=== PATIENT | female | born 2000 | race Caucasian/White ===

== ENCOUNTER 2018-06-02 12:33 | Inpatient (IN) | payer OTHER ==
[2018-06-02] MEDS ORDERED: Thiamine HCl 200 MG/2 ML VIAL SLOW IVP SCH ×2 (14:30→15:00)
--- NOTE | 2018-06-02 14:36 | PDOC.FPRHP ---
- History of Present Illness Chief Complaint: bradycardia History of Present Illness: 17 y/o with PMH of MDD and anorexia nervosa, severe, presents for direct admission from clinic. She was seen in our behavioral health consultation clinic during which time she was noted to be bradycardic on vitals. An ECG was obtained which demonstrated NSR, with a HR of 34, and normal voltage without prominent st/t wave changes. She has been having pronounced fatigue since her last visit, which was three weeks ago, with decreased exertional tolerance and presyncope upon rising. In the clinic her orthostatics were positive. Most recently she has also been picking at her face compulsively to alleviate obsessions with loss of purpose and not knowing why she is in school, etc. She currently denies any suicidal ideation, although this was present several weeks ago. Some history taken from psychologist due to patience reticence to endorse parts of her history. - Allergies/Adverse Reactions Allergies Allergy/AdvReac Type Severity Reaction Status Date / Time No Known Allergies Allergy Unverified 06/02/18 14:25 - Home Medications Medication Instructions Recorded Confirmed Type FLUoxetine HCl [Prozac] 40 mg PO DAILY 06/02/18 06/02/18 History hydrOXYzine HCl [Hydroxyzine HCl] 50 mg PO Q8H PRN 06/02/18 06/02/18 History - History PMHx: Major depressive disorder; anorexia nervosa, severe PSHx: none FHx: Major depressive disorder; bipolar disorder Social: denies ethanol, tobacco, or drug abuse. Student at [employer], 3.6 GPA per discussion with psychologist from clinic. Recent breakup approximately 6-7 months ago with deterioration of mood and symptoms subsequently. - Review of Systems General: reports: fatigue. denies: fever/chills, night sweats Eyes: denies: eye pain, vision changes ENT: denies: nasal congestion, rhinorrhea Respiratory: reports: exercise intolerance. denies: cough, congestion, shortness of breath Cardiovascular: reports: other (see HPI). denies: chest pain, palpitation Gastrointestinal: denies: nausea, vomiting, diarrhea, constipation, abdominal pain Genitourinary: denies: dysuria, polyuria Skin: reports: lesions (skin pigmentation changes to right knee; picking of face ) Musculoskeletal: reports: pain, arthritis/arthralgias (right knee) Neurological: denies: numbness, syncope (but + presyncope), seizure, weakness Psychological: reports: depression - Vital signs BP: HR: 44 RR: 16 Tmax: 98.3 Pox: 99% on RA Wt: pending - Physical Exam Constitutional: NAD, awake, alert and oriented, other (very thin, tall) HEENT: normocephalic and atraumatic, PERRLA, conjunctiva clear, normal nasal mucosa, MMM (no dental erosion) Neck: supple, FROM, no LAD Chest: no-tender to palpation, no lesions Heart: no murmurs/rubs/gallops, no edema, other (bradycardic, regular, without murmur) Lungs: CTAB, no respiratory distress, good air movement, no rales/rhonchi Abdomen: soft, non-tender, no masses/distention, other (scaphoid) Musculoskeletal: normal structure, normal tone, ROM grossly normal Neurological: no focal deficit, CN II-XII intact, normal sensation, DTRs 2+ Skin: good turgor, capillary refill <2 seconds, other (pigmentation changes right knee; sores of face) Heme/Lymphatic: no unusual bruising or bleeding, no purpura Psychiatric: other (poor insight and judgment, depressed mood and affect, no si/ hi) FMR H&P: A/P - Problem List (1) Anorexia nervosa with significantly low body weight Current Visit: Yes Status: Acute Code(s): F50.00 - ANOREXIA NERVOSA, UNSPECIFIED (2) Sinus bradycardia Current Visit: Yes Status: Acute Code(s): R00.1 - BRADYCARDIA, UNSPECIFIED (3) Major depressive disorder Current Visit: Yes Status: Acute Code(s): F32.9 - MAJOR DEPRESSIVE DISORDER , SINGLE EPISODE, UNSPECIFIED Qualifiers: Active/Remission status: currently active Major depression episode severity : severe Psychotic features: without psychotic features (4) OCD (obsessive compulsive disorder) Current Visit: Yes Status: Acute Code(s): F42.9 - OBSESSIVE-COMPULSIVE DISORDER, UNSPECIFIED Qualifiers: Obsessive-compulsive disorder type: mixed obsessional thoughts and acts Qualified Code(s): F42.2 - Mixed obsessional thoughts and acts - Plan Bradycardia -will d/w cardiology -lytes, TSH, TTE, vitamin labs Anorexia nervosa, severe, BMI 15.9 in clinic -consult nutrition -lytes, cbc -will discuss diet with nutrition and consider serial labs to avoid refeeding syndrome -once cleared and with bradycardia not < 40 will consider transfer to intensive outpatient therapy if at all possible, will consult social work MDD -increase prozac to 40 mg -hydroxyzine PRN reasonable OCD -as above DVT/GI ppx low risk/diet respectively. FMR H&P: Upper Level - Plan H&P written by the attending of service.
[2018-06-02] MEDS ORDERED: hydrOXYzine 25 MG TAB PO PRN (14:50)
--- NOTE | 2018-06-02 14:59 | CON ---
DATE OF CONSULTATION: 06/02/2018 REASON FOR CONSULTATION: Bradycardia. HISTORY OF PRESENT ILLNESS: Ms. Ordaz is a 17-year-old recently diagnosed with anorexia recently pr esented with bradycardia. She was seen and evaluated in the outpatient setting. Admission was recom mended. From a cardiovascular standpoint, she denies syncope, presyncope, lightheadedness, or dizziness. She did have one episode of near fainting that occurred during a blood draw 2 weeks ago. Otherwise, Hazel jayna forrester had no further history. Her parents were present during the discussion. She has lost 40 pounds in the last year. She states she has increased stressors noted at home and recently lost her boyfriend. She continues to exercis e with a poor p.o. intake. PAST MEDICAL HISTORY: Anxiety. ALLERGIES: None. MEDICATIONS: Prozac. SOCIAL HISTORY: She is single. No tobacco or alcohol use. REVIEW OF SYSTEMS: Ten point review of systems reviewed and as above, otherwise negative. PHYSICAL EXAMINATION: VITAL SIGNS: Blood pressure 92/57, pulse 48, temperature 98.3. GENERAL: Patient is a pleasant female who is in no acute distress. The patient appears her stated a ge. She has low body weight and bradycardic. NEUROLOGIC: The patient is alert and oriented times 3 with no focal neurologic deficits. HEENT: Sclerae without icterus. Mouth has moist mucous membranes with normal pallor. NECK: No JVD. Carotid upstroke brisk. No bruits bilaterally. LUNGS: Clear to auscultation with unlabored respirations. BACK: No scoliosis or kyphosis. CARDIAC: Regular rate and rhythm with normal S1 and S2. No S3 or S4 noted. No significant rubs, murmurs, thrills, or gallops noted throughout the precordium. PMI is not displaced. There is no parasternal heave. ABDOMEN: Soft, nontender, nondistended. No peritoneal signs present. No hepatosplenomegaly. No abnormal striae. EXTREMITIES: 2+ femoral and 2+ dorsalis pedis pulses. No cyanosis, clubbing, or edema. SKIN: No gross abnormalities. PERTINENT LABS: Pending. EKG shows marked bradycardia. IMPRESSION: 1. Bradycardia. 2. Anorexia. RECOMMENDATIONS: There is certainly an association between bradycardia and anorexia. Bradycardia ca n occur from advanced anorexia. Heart failure can also occur. At this point, I would recommend clos e observation. I will also recommend a 3-week outpatient event recorder, although she will be transf erred likely to an inpatient anorexia center in [place]. I recommended a follow up with a card iologist in [place] upon discharge. We will review her echo to assess her LVEF.
[2018-06-02 15:24] LABS: #Basophils 0.1 thou/uL (0.0-0.2); #Eosinphils 0.1 thou/uL (0.0-0.7); #Lymphocytes 1.1 thou/uL (1.20-3.40); #Monocytes 0.4 thou/uL (0.11-0.59); #Neutrophils 2.4 thou/uL (1.40-6.50); %Basophils 1.3 % (0.0-1.0); %Eosinophils 2.6 % (0.0-10.0); %Lymphocytes 28.1 % (28.0-48.0); %Neutrophils 59.1 % (31.0-61.0); Hemoglobin 13.7 g/dL (12.0-16.0); Mean Corpuscular HGB CONC 33.7 g/dL (32.0-36.0); Mean Corpuscular Hemoglobin 31.8 pg (25.0-35.0); Mean Corpuscular Volume 94.3 fL (78.0-98.0); Mean Platelet Volume 6.7 fL (7.4-10.4); Platelet Count 223 thou/uL (130-400); RBC Distribution Width 12.2 % (11.5-14.5); Red Blood Cell (RBC) Count 4.33 mill/uL (4.00-5.20)
[2018-06-02 15:50] LABS: ALT (SGPT) 9 U/L (8-55); AST (SGOT) 12 U/L (5-30); Albumin 4.2 g/dL (3.5-5.0); Alkaline Phosphatase 41 U/L (40-150); Anion Gap 9 mmol/L (10-20); BUN (Urea Nitrogen) 15 mg/dL (8.4-21.0); Bilirubin, Total 0.6 mg/dL (0.2-1.2); Calc. Creatinine Clearance 92 mL/min (70-130); Calcium 9.3 mg/dL (7.8-10.44); Carbon Dioxide 31 mmol/L (22-29); Chloride 105 mmol/L (98-107); Estimated GFR-MDRD 89; Globulin 2.4 g/dL (2.4-3.5); Glucose 102 mg/dL (70-105); Lipase 40 U/L (8-78); Magnesium 2.4 mg/dL (1.7-2.2); Phosphorus 3.4 mg/dL (2.3-4.7); Potassium 3.4 mmol/L (3.5-5.1); Protein, Total 6.6 g/dL (6.0-8.3); Sodium 142 mmol/L (136-145)
[2018-06-02 16:30] LABS: Free T4 (Free Thyroxine) 0.96 ng/dL (0.70-1.48); Thyroid Stimulating Hormone 0.9498 uIU/mL (0.35-4.94); Vitamin D, 25 Hydroxy 34.7 ng/ml (> 30.0)
[2018-06-02 19:48] LABS: Pregnancy Test - Urine (BHCG) Negative (Negative); Pregu Control Background? CLEAR/WHITE (CLR/WHITE); Pregu Control Bar Appear? YES (CONTROL BAR); Specific Gravity 1.022 (1.002-1.036)
[2018-06-02] MEDS: FLUoxetine HCl 20 MG CAP PO SCH (21:48)
[2018-06-03 01:37] LABS: Anion Gap 10 mmol/L (10-20); BUN (Urea Nitrogen) 23 mg/dL (8.4-21.0); Calc. Creatinine Clearance 92 mL/min (70-130); Carbon Dioxide 28 mmol/L (22-29); Chloride 109 mmol/L (98-107); Estimated GFR-MDRD 89; Glucose 88 mg/dL (70-105); Phosphorus 4.6 mg/dL (2.3-4.7); Potassium 3.7 mmol/L (3.5-5.1); Sodium 143 mmol/L (136-145)
--- NOTE | 2018-06-03 07:23 | PDOC.FM ---
- Subjective Subjective: Pt feels well this morning. Worried about what she is going to do in the future. Worried about the cost of the hospitalization. States she doesn't believe me when discussing her condition is critical enough to require hospitalization. Her parents live in [place] and she states they are in town and will be up to visit her today. - Objective MAR Reviewed: Yes Vital Signs & Weight: Vital Signs (12 hours) Temp Pulse Resp BP Pulse Ox 06/03/18 04:00 97.7 F 36 L 12 112/62 99 06/02/18 23:59 98 F 43 L 15 102/55 L 98 06/02/18 20:50 98.0 F 45 L 14 101/55 L 98 Weight Weight 54.023 kg I&O: 06/02/18 06/03/18 06/04/18 06:59 06:59 06:59 Intake Total 770 Output Total 150 Balance 620 Result Diagrams: 06/02/18 15:14 06/03/18 00:39 Phys Exam - Physical Examination Constitutional: NAD Very thin appearing Neck: supple Respiratory: no wheezing, clear to auscultation bilateral Cardiovascular: no significant murmur Bradycardic Gastrointestinal: non-tender, positive bowel sounds very thin Musculoskeletal: no edema, pulses present Psychiatric: A&O x 3 Deviation from normal: Unsettled disposition, good eye contact. Poor insight into medical conditio Skin: cap refill <2 seconds Dx/Plan (1) Anorexia nervosa with significantly low body weight Code(s): F50.00 - ANOREXIA NERVOSA, UNSPECIFIED Status: Acute (2) Major depressive disorder Code(s): F32.9 - MAJOR DEPRESSIVE DISORDER, SINGLE EPISODE, UNSPECIFIED Status : Chronic Qualifiers: Active/Remission status: currently active Major depression episode severity : severe Psychotic features: without psychotic features (3) OCD (obsessive compulsive disorder) Code(s): F42.9 - OBSESSIVE-COMPULSIVE DISORDER, UNSPECIFIED Status: Chronic Qualifiers: Obsessive-compulsive disorder type: mixed obsessional thoughts and acts Qualified Code(s): F42.2 - Mixed obsessional thoughts and acts (4) Sinus bradycardia Code(s): R00.1 - BRADYCARDIA, UNSPECIFIED Status: Chronic - Plan Plan: Bradycardia - 30's overnight - cardiology - Monitor lytes, TSH, TTE, vitamin labs Anorexia nervosa, severe, BMI 15.9 in clinic - Nutrition consulted - Daily standing wts facing away from scale - Must have 3 meal trays per day - Monitor Electrolytes and CBC, serial labs to avoid refeeding syndrome - CM consulted to arrange outpt intensive therapy once cleared from medical standpoint MDD - Continue Prozac 40 mg - Hydroxyzine PRN reasonable OCD - Manage as above Code Status: FULL
--- NOTE | 2018-06-03 12:55 | PQF ---
Date: 06-04-18 ATTN: DR. MARIA ELENA ATWOOD Please exercise your independent, professional judgment in responding to the clarification form. Clinical indicators are provided on the bottom of this form for your review Please check appropriate box(s): [ ] Protein Calorie Malnutrition: [ ] Mild [ ] Moderate [x] Severe [ ] Other Malnutrition (please specify) __ [ ] Cachexia [ ] Other diagnosis [ ] Unable to determine In addition, please specify: Present on Admission (POA): [x] Yes [ ] No [ ] Unable to determine CLINICAL INDICATORS - SIGNS / SYMPTOMS / LABS BMI of 15.[address] KAWN 06-02-18: SHE HAS LOST 40 POUNDS IN LAST YEAR, SHE CONTINUES TO EXERCISE WITH A POOR PO INTAKE LIFESTYLE DIRECTOR CONSULT 06-03-18: Patient is a sophomore at [employer], states she began restricting food this summer because "food was always available her first year and she wanted to practice self-control since she's not as active. " Patient played basketball and volleyball in high school and believes that she is not burning enough calories to require higher calorie foods. She eats one packet of oatmeal cooked with water every morning and a PB&J for lunch, usually skips dinner. She will restrict further if she goes out to eat with family/friends and thinks "she ate enough to sustain her for a while." LIFESTYLE DIRECTOR CONSULT 06-03-18: Noted: observed minimal fat stores, thin appearance, restrictive eating patterns, estimated energy intake of <75% of estimated needs x6 months , 24% weight loss in 6 months, body fat depletion, amenorrhea RISK FACTORS: LIFESTYLE DIRECTOR CONSULT 06-03-18: major depressive disorder, anorexia nervosa LIFESTYLE DIRECTOR CONSULT 06-03-18: Noted: observed minimal fat stores, thin appearance, restrictive eating patterns, estimated energy intake of <75% of estimated needs x6 months, 24% weight loss in 6 months, body fat depletion, amenorrhea TREATMENT: LIFESTYLE DIRECTOR CONSULT 06-03-18: 1. Continue Regular diet, monitoring for intake of greater than 500 calories per meal [address]. RD to add Mighty Shakes TID with meals 3. Monitor for refeeding syndrome Moderate Malnutrition (in acute illness) Energy Intake: <75% of estimated energy requirement for > 7 days Weight Loss: 1-2%/1 week; 5%/ 1 month; 7.5%/3 months Other: mild body fat loss; mild muscle mass loss; mild fluid accumulation; Severe Malnutrition (in acute illness) Energy Intake: < 50% of estimated energy requirement for > 5 days Weight Loss: >1-2%/1 week; >5%/1 month; >7.5%/3 months Other: moderate body fat loss; moderate muscle mass loss; moderate- severe fluid accumulation; measurably reduced superintendent general strength Moderate Malnutrition (in chronic illness) Energy Intake: <75% of estimated energy requirement for >1 month Weight Loss: 5%/1 month; 7.5%/3 months; 10%/6 months; 20%/1 year Other: mild body fat loss; mild muscle mass loss; mild fluid accumulation Severe Malnutrition (in chronic illness) Energy Intake: <75% of estimated energy requirement for >1 month Weight Loss: >5%/1 month; >7.5%/3 months; >10%/6 months; >20%/1 year Other: severe body fat loss; severe muscle mass loss; severe fluid accumulation ; measurably reduced superintendent general strength (This form is maintained as a part of the permanent medical record) 2014 [employer]. All Rights Reserved [email or web address] Office: [phone] [facility]
--- NOTE | 2018-06-03 14:31 | PDOC.CTH ---
Cardiology Progress Note - Subjective Doing ok today. Still confused about her current situation. She is not sure she needs to be hospitalized for her condition - Objective Vital Signs Temp Pulse Resp BP BP Pulse Ox 06/03/18 11:23 98.0 F 44 L 16 112/67 98 06/03/18 09:25 98.1 F 49 L 16 103/61 98 06/03/18 04:00 97.7 F 36 L 12 112/62 99 Admit Weight 117 lb 11.2 oz Weight 119 lb 1.6 oz 06/02/18 06/03/18 06/04/18 06:59 06:59 06:59 Intake Total 770 Output Total 150 Balance 620 - Physical Examination General/Neuro: alert & oriented x3, NAD Neck: carotid US brisk, no JVD present Lungs: CTA, unlabored respirations Heart: PMI normal, RRR Abdomen: NT/ND, soft Extremities: + femoral B - Labs Result Diagrams: 06/02/18 15:14 06/03/18 00:39 - Assessment/Plan Bradycardia Anorexia nervosa Given no current symptoms, recommend close observation. I has a karthik discussion with her today on the importance of seeking help. As her nutrition status improves, so to will her HR
[2018-06-03] MEDS: FLUoxetine HCl 20 MG CAP PO SCH (20:13)
--- NOTE | 2018-06-04 05:35 | PDOC.CTH ---
Cardiology Progress Note - Subjective HR overall unchanged. Hr in the 30's while asleep. With activity increases to upper 40's to 50's. No current symptoms./ - Objective Vital Signs Temp Pulse Resp BP BP Pulse Ox 06/04/18 04:00 98.4 F 41 L 17 100/54 L 99 06/03/18 19:14 98.0 F 63 20 116/72 98 Admit Weight 117 lb 11.2 oz Weight 119 lb 1.6 oz 06/02/18 06/03/18 06/04/18 06:59 06:59 06:59 Intake Total 770 Output Total 150 Balance 620 - Physical Examination General/Neuro: alert & oriented x3, NAD Neck: carotid US brisk, no JVD present Lungs: CTA, unlabored respirations Heart: PMI normal, RRR Abdomen: no HSM, NT/ND, soft Extremities: + femoral B - Labs Result Diagrams: 06/04/18 06:25 06/04/18 06:25 - Assessment/Plan Bradycardia Anorexia nervosa Again, long discussion with pt on the importance of getting treatment. Pt still unsure she needs it. No current CV recommendations given no symptoms. As nutrition status improves, so to will her HR. Ok to DC to [facility]
--- NOTE | 2018-06-04 06:11 | PDOC.FM ---
- Subjective Subjective: Doing well ate most of her breakfast. Her friends came to visit last night and brought her a shake. She drank all of it. There has been a family member present supervising each of her meals. - Objective MAR Reviewed: Yes Vital Signs & Weight: Vital Signs (12 hours) Temp Pulse Resp BP BP Pulse Ox 06/04/18 04:00 98.4 F 41 L 17 100/54 L 99 06/03/18 19:14 98.0 F 63 20 116/72 98 Weight Admit Weight 53.388 kg Weight 54.204 kg I&O: 06/02/18 06/03/18 06/04/18 06:59 06:59 06:59 Intake Total 770 480 Output Total 150 Balance 620 480 Result Diagrams: 06/04/18 06:25 06/04/18 06:25 Phys Exam - Physical Examination Constitutional: NAD Neck: supple Respiratory: no wheezing, clear to auscultation bilateral Cardiovascular: no significant murmur bradycardic Gastrointestinal: soft, non-tender Neurological: moves all 4 limbs Psychiatric: normal affect, A&O x 3 Dx/Plan (1) Anorexia nervosa with significantly low body weight Code(s): F50.00 - ANOREXIA NERVOSA, UNSPECIFIED Status: Acute (2) Major depressive disorder Code(s): F32.9 - MAJOR DEPRESSIVE DISORDER, SINGLE EPISODE, UNSPECIFIED Status : Chronic Qualifiers: Active/Remission status: currently active Major depression episode severity : severe Psychotic features: without psychotic features (3) OCD (obsessive compulsive disorder) Code(s): F42.9 - OBSESSIVE-COMPULSIVE DISORDER, UNSPECIFIED Status: Chronic Qualifiers: Obsessive-compulsive disorder type: mixed obsessional thoughts and acts Qualified Code(s): F42.2 - Mixed obsessional thoughts and acts (4) Sinus bradycardia Code(s): R00.1 - BRADYCARDIA, UNSPECIFIED Status: Chronic - Plan Plan: Bradycardia - 30's overnight - Cardiology consulted, apprec recs - Echo: 50-55% EF - 3 week outpt event recorder upon discharge - Will need close f/u with farmer [facility] in [place] if pt participates in their inpatient rehab located there - Monitor lytes Anorexia nervosa, severe, BMI 15.9 in clinic - Current BMI 16.2 - Daily standing wts facing away from scale - Must have 3 meal trays per day - Frequent observation checks to monitor for calorie burning activities - Nutrition consulted - Monitor Electrolytes and CBC, serial labs to avoid refeeding syndrome - Parents and patient have chosen [facility] for treatment - CM consulted - It has been relayed that she cannot directly transfer to [facility], she will need to be discharged and check herself into their inpatient rehabilitation MDD/OCD - Continue Prozac 40 mg - Hydroxyzine PRN Code Status: FULL
[2018-06-04 06:32] LABS: Hemoglobin 13.5 g/dL (12.0-16.0); Mean Corpuscular HGB CONC 33.5 g/dL (32.0-36.0); Mean Corpuscular Hemoglobin 31.6 pg (25.0-35.0); Mean Corpuscular Volume 94.3 fL (78.0-98.0); Mean Platelet Volume 6.8 fL (7.4-10.4); Platelet Count 199 thou/uL (130-400); RBC Distribution Width 12.2 % (11.5-14.5); Red Blood Cell (RBC) Count 4.27 mill/uL (4.00-5.20); White Blood Cell (WBC) Count 4.6 thou/uL (4.8-10.8)
[2018-06-04 07:00] LABS: ALT (SGPT) 12 U/L (8-55); AST (SGOT) 12 U/L (5-30); Albumin 3.9 g/dL (3.5-5.0); Alkaline Phosphatase 39 U/L (40-150); Anion Gap 11 mmol/L (10-20); BUN (Urea Nitrogen) 13 mg/dL (8.4-21.0); Bilirubin, Total 0.4 mg/dL (0.2-1.2); Calc. Creatinine Clearance 99 mL/min (70-130); Calcium 9.2 mg/dL (7.8-10.44); Carbon Dioxide 25 mmol/L (22-29); Chloride 106 mmol/L (98-107); Estimated GFR-MDRD Greater than 90; Globulin 2.3 g/dL (2.4-3.5); Glucose 84 mg/dL (70-105); Magnesium 2.4 mg/dL (1.7-2.2); Protein, Total 6.2 g/dL (6.0-8.3); Sodium 138 mmol/L (136-145)
--- NOTE | 2018-06-04 11:10 | PRG ---
DATE OF SERVICE: 06/04/2018 Ms. Ordaz had a complete breakfast this morning. She appears alert, oriented, in no distress. Her labs; white count 4600, hemoglobin 13.5, hematocrit 40.3 with an MCV of 94.3. Electrolytes: Sod ium 138, potassium 4, chloride 106, bicarbonate 25, BUN 13, creatinine 0.78. Glucose is 84. Liver e nzymes are normal. Her total protein is normal at 6.2. Her albumin is normal at 3.9. We are awaiting transfer possibly to a Center in [place] for her anorexia nervosa. She will need ongo ing psychiatric evaluation.
[2018-06-04 13:54] VITALS: BMI 16.2
[2018-06-04] MEDS: FLUoxetine HCl 20 MG CAP PO SCH (21:13)
--- NOTE | 2018-06-05 07:00 | PDOC.FM ---
- Subjective Subjective: NAEO. Patient does not have any complaints this AM. States she feels well and asked if she needs to go to the recovery center for her eating or her heart rate. Explained it was because of her eating and that her HR would improve if this was addressed. Patient expressed understanding. - Objective MAR Reviewed: Yes Vital Signs & Weight: Vital Signs (12 hours) Temp Pulse Resp BP BP Pulse Ox 06/05/18 03:11 97.6 F 50 L 12 99/60 99 06/04/18 19:17 97.7 F 54 L 14 101/74 99 Weight Admit Weight 53.388 kg Weight 53.977 kg I&O: 06/03/18 06/04/18 06/05/18 06:59 06:59 06:59 Intake Total 102 763 7482 Output Total 150 1000 Balance 620 480 180 Result Diagrams: 06/04/18 06:25 06/04/18 06:25 <Shanda Robb - Last Filed: 06/05/18 11:25> - Objective Vital Signs & Weight: Vital Signs (12 hours) Temp Pulse Resp BP Pulse Ox 06/05/18 16:00 98.1 F 75 16 96/56 L 98 06/05/18 08:17 92 L 06/05/18 08:15 98.5 F 80 14 103/72 96 Weight Admit Weight 53.388 kg Weight 53.977 kg I&O: 06/04/18 06/05/18 06/06/18 06:59 06:59 06:59 Intake Total 480 1180 Output Total 1000 Balance 480 180 Result Diagrams: 06/04/18 06:25 06/04/18 06:25 <Andrew Slaughter - Last Filed: 06/05/18 17:24> Phys Exam - Physical Examination Constitutional: NAD HEENT: moist MMs, oral pharynx no lesions Neck: supple, full ROM Respiratory: clear to auscultation bilateral Cardiovascular: no significant murmur bradycardic Gastrointestinal: soft, non-tender, no distention, positive bowel sounds Musculoskeletal: no edema Neurological: non-focal, normal sensation, moves all 4 limbs Psychiatric: normal affect, A&O x 3 Skin: no rash, normal turgor, cap refill <2 seconds <Shanda Robb - Last Filed: 06/05/18 11:25> Dx/Plan (1) Anorexia nervosa with significantly low body weight Code(s): F50.00 - ANOREXIA NERVOSA, UNSPECIFIED Status: Acute (2) Major depressive disorder Code(s): F32.9 - MAJOR DEPRESSIVE DISORDER, SINGLE EPISODE, UNSPECIFIED Status : Chronic Qualifiers: Active/Remission status: currently active Major depression episode severity : severe Psychotic features: without psychotic features (3) OCD (obsessive compulsive disorder) Code(s): F42.9 - OBSESSIVE-COMPULSIVE DISORDER, UNSPECIFIED Status: Chronic Qualifiers: Obsessive-compulsive disorder type: mixed obsessional thoughts and acts Qualified Code(s): F42.2 - Mixed obsessional thoughts and acts (4) Sinus bradycardia Code(s): R00.1 - BRADYCARDIA, UNSPECIFIED Status: Chronic - Plan Plan: Plan: Bradycardia - HR only down to 50's overnight, improving. - Cardiology consulted & cleared for D/C stating that her HR will improve once anorexia is treated. - Echo: 50-55% EF - Will need close f/u with [facility] in [place] if pt participates in their inpatient rehab located there. - Will continue to monitor electrolytes closely w/ QD BMPs, Mg, phos. Anorexia nervosa, severe, BMI of 15.9 in clinic - Current BMI 16.2. - Weight down slightly today from yesterday. Will continue with daily standing wts facing away from scale. - Must have 3 meal trays per day. - Frequent observation checks to monitor for calorie burning activities. - Nutrition consulted. Appreciate recs. - Will continue to monitor electrolytes and CBC closely to avoid refeeding syndrome. - Parents and patient have chosen [facility] for treatment. CM consulted & working on placement there explained to pt and mother that pt cannot be directly transferred to [facility]. She will need to be discharged and check herself into their inpatient rehabilitation. Mom and patient expressed understanding. MDD/OCD - Will continue Prozac 40 mg. - Hydroxyzine PRN. Code Status: FULL <Shanda Robb - Last Filed: 06/05/18 11:25> (1) Anorexia nervosa with significantly low body weight Code(s): F50.00 - ANOREXIA NERVOSA, UNSPECIFIED Status: Acute (2) Sinus bradycardia Code(s): R00.1 - BRADYCARDIA, UNSPECIFIED Status: Chronic (3) Major depressive disorder Code(s): F32.9 - MAJOR DEPRESSIVE DISORDER, SINGLE EPISODE, UNSPECIFIED Status : Chronic Qualifiers: Active/Remission status: currently active Major depression episode severity : severe Psychotic features: without psychotic features (4) OCD (obsessive compulsive disorder) Code(s): F42.9 - OBSESSIVE-COMPULSIVE DISORDER, UNSPECIFIED Status: Chronic Qualifiers: Obsessive-compulsive disorder type: mixed obsessional thoughts and acts Qualified Code(s): F42.2 - Mixed obsessional thoughts and acts <Andrew Slaughter - Last Filed: 06/05/18 17:24> Attending Addendum - Attending Addendum Date/Time: 06/05/18 7160 I personally evaluated the patient and discussed the management with Dr. Robb. I agree with and repeated the History, Examination, Assessment and Plan documented above with any addition or exceptions noted below. Discussed in detail with patient precautions as above and need for her to stay inpatient until transferred due to risk of additional complications. I spent approximately 35 minutes with the patient with >50% of that time spent in direct counseling concerning her meal plan, expectations for this weekend, and the clinical course of her disease. <Andrew Slaughter - Last Filed: 06/05/18 17:24>
[2018-06-05] MEDS ORDERED: Sodium Chloride 0.9% 10 ML ONE (20:12)
[2018-06-05] MEDS: FLUoxetine HCl 20 MG CAP PO SCH (20:18)
[2018-06-05] MEDS ORDERED: Acetaminophen 325 MG TAB PO PRN (23:42)
--- NOTE | 2018-06-06 06:25 | PDOC.FM ---
- Subjective Subjective: NAEO. Patient states she feels well this AM. Denies any lightheadedness but was asking about anxiety medication. Told her she has it ordered just needs to ask for it. Answered all questions and told her we would be available today should she think of anything else. - Objective MAR Reviewed: Yes Vital Signs & Weight: Vital Signs (12 hours) Temp Pulse Resp BP Pulse Ox 06/06/18 04:54 97.5 F L 40 L 16 101/58 L 100 06/06/18 00:00 97.6 F 43 L 20 106/72 100 06/05/18 20:18 98 06/05/18 20:13 97.7 F 46 L 16 103/56 L 98 Weight Admit Weight 53.388 kg Weight 53.161 kg I&O: 06/04/18 06/05/18 06/06/18 06:59 06:59 06:59 Intake Total 480 1180 Output Total 1000 Balance 480 180 Result Diagrams: 06/04/18 06:25 06/06/18 06:37 <Shanda Robb - Last Filed: 06/06/18 09:08> - Objective Vital Signs & Weight: Vital Signs (12 hours) Temp Pulse Resp BP BP Pulse Ox 06/06/18 07:56 99 06/06/18 07:42 96.5 F L 48 L 16 101/72 99 06/06/18 04:54 97.5 F L 40 L 16 101/58 L 100 06/06/18 00:00 97.6 F 43 L 20 106/72 100 Weight Admit Weight 53.388 kg Weight 53.161 kg I&O: 06/05/18 06/06/18 06/07/18 06:59 06:59 06:59 Intake Total 1180 610 Output Total 1000 1100 Balance 180 -490 Result Diagrams: 06/04/18 06:25 06/06/18 06:37 <Andrew Slaughter - Last Filed: 06/06/18 10:31> Phys Exam - Physical Examination Constitutional: NAD HEENT: moist MMs, sclera anicteric Neck: supple, full ROM Respiratory: no wheezing, clear to auscultation bilateral Cardiovascular: no significant murmur bradycardic with regular rhythm Gastrointestinal: soft, non-tender, no distention, positive bowel sounds Musculoskeletal: no edema Neurological: non-focal, moves all 4 limbs Psychiatric: normal affect, A&O x 3 Skin: no rash, normal turgor, cap refill <2 seconds <Shanda Robb - Last Filed: 06/06/18 09:08> Dx/Plan (1) Anorexia nervosa with significantly low body weight Code(s): F50.00 - ANOREXIA NERVOSA, UNSPECIFIED Status: Acute (2) Major depressive disorder Code(s): F32.9 - MAJOR DEPRESSIVE DISORDER, SINGLE EPISODE, UNSPECIFIED Status : Chronic Qualifiers: Active/Remission status: currently active Major depression episode severity : severe Psychotic features: without psychotic features (3) OCD (obsessive compulsive disorder) Code(s): F42.9 - OBSESSIVE-COMPULSIVE DISORDER, UNSPECIFIED Status: Chronic Qualifiers: Obsessive-compulsive disorder type: mixed obsessional thoughts and acts Qualified Code(s): F42.2 - Mixed obsessional thoughts and acts (4) Sinus bradycardia Code(s): R00.1 - BRADYCARDIA, UNSPECIFIED Status: Chronic - Plan Plan: Bradycardia, improving - HR only down to 40's overnight. - Cardiology consulted & cleared for D/C stating that her HR will improve once anorexia is treated. - Echo revealed a 50-55% EF. - Will need close f/u with training project manager in [place] if pt participates in their inpatient rehab located there. - Will continue to monitor electrolytes closely w/ QD BMPs, Mg, phos. WNLs other than slightly elevated Mg today. Anorexia nervosa, severe, BMI of 15.9 in clinic - Current BMI 15.9. - Weight down slightly today from yesterday. Patient had to be escorted back to room after being found walking laps in [place] [address] yesterday afternoon. Also suspect she flushed or vomited up her breakfast. Will continue with daily standing wts facing away from scale and will require strict bedrest with bathroom privileges but with a nurse or other staff member escorting her. - Must have 3 meal trays per day and likely needs supervision with eating. - Needs frequent observation checks to monitor for calorie burning activities. - Nutrition consulted. Appreciate recs. - Will continue to monitor electrolytes and CBC closely to avoid refeeding syndrome. - Parents and patient have chosen [facility] for treatment. CM consulted & explained to pt and mother that pt cannot be directly transferred to [facility]. She will need to be discharged and check herself into their inpatient rehabilitation. Mom and patient expressed understanding. - Plan to keep patient in hospital until tomorrow so she can be discharged and have her parents drive her straight to the recovery center and check her in. MDD/OCD - Will continue Prozac 40 mg. - Hydroxyzine PRN. Code Status: FULL <Shanda Robb - Last Filed: 06/06/18 09:08> (1) Anorexia nervosa with significantly low body weight Code(s): F50.00 - ANOREXIA NERVOSA, UNSPECIFIED Status: Acute (2) Sinus bradycardia Code(s): R00.1 - BRADYCARDIA, UNSPECIFIED Status: Chronic (3) Major depressive disorder Code(s): F32.9 - MAJOR DEPRESSIVE DISORDER, SINGLE EPISODE, UNSPECIFIED Status : Chronic Qualifiers: Active/Remission status: currently active Major depression episode severity : severe Psychotic features: without psychotic features (4) OCD (obsessive compulsive disorder) Code(s): F42.9 - OBSESSIVE-COMPULSIVE DISORDER, UNSPECIFIED Status: Chronic Qualifiers: Obsessive-compulsive disorder type: mixed obsessional thoughts and acts Qualified Code(s): F42.2 - Mixed obsessional thoughts and acts <Andrew Slaughter - Last Filed: 06/06/18 10:31> Attending Addendum - Attending Addendum Date/Time: 06/06/18 1029 I personally evaluated the patient and discussed the management with Dr. Robb. I agree with and repeated the History, Examination, Assessment and Plan documented above with any addition or exceptions noted below. I spent 45 minutes with patient with >50% of that time spent in counseling concerning her history, prognosis, treatment plan here and likely future therapies upon transfer. She has lost weight. We will have her on BR with nurse supervision for BR privileges and we need reports on % of each tray she eats. The patient states she has not engaged in food-subversive behaviors. Will discuss with family (permission given by patient) to ensure follow up for transfer. <Andrew Slaughter - Last Filed: 06/06/18 10:31>
[2018-06-06 07:14] LABS: Anion Gap 9 mmol/L (10-20); BUN (Urea Nitrogen) 14 mg/dL (8.4-21.0); Calc. Creatinine Clearance 91 mL/min (70-130); Calcium 9.7 mg/dL (7.8-10.44); Carbon Dioxide 30 mmol/L (22-29); Chloride 103 mmol/L (98-107); Estimated GFR-MDRD 89; Glucose 80 mg/dL (70-105); Magnesium 2.5 mg/dL (1.7-2.2); Phosphorus 4.2 mg/dL (2.3-4.7); Potassium 4.2 mmol/L (3.5-5.1); Sodium 138 mmol/L (136-145)
[2018-06-06] MEDS: FLUoxetine HCl 20 MG CAP PO SCH (21:35)
[2018-06-07 05:38] LABS: Anion Gap 11 mmol/L (10-20); BUN (Urea Nitrogen) 16 mg/dL (8.4-21.0); Calc. Creatinine Clearance 93 mL/min (70-130); Calcium 9.4 mg/dL (7.8-10.44); Carbon Dioxide 28 mmol/L (22-29); Chloride 104 mmol/L (98-107); Estimated GFR-MDRD 90; Glucose 76 mg/dL (70-105); Magnesium 2.3 mg/dL (1.7-2.2); Phosphorus 4.3 mg/dL (2.3-4.7); Sodium 139 mmol/L (136-145)
--- NOTE | 2018-06-07 05:53 | PDOC.FM ---
- Subjective Subjective: Patient is feeling well today. Denies headaches. Discussed the process it will be to get her into rehab- patient says that she expects a "call" on thursday, then the rehab facility will make a plan for her care. States that it may be until before she is able to be placed. Patient expresses concern about her ability to do her classes while in rehabilitation. - Objective Vital Signs & Weight: Vital Signs (12 hours) Temp Pulse Resp BP Pulse Ox 06/07/18 04:00 97.9 F 56 L 16 100/68 100 06/07/18 00:00 97.9 F 65 18 105/65 97 06/06/18 20:00 95 06/06/18 19:22 97.5 F L 60 18 98/59 L 95 Weight Admit Weight 53.388 kg Weight 53.161 kg I&O: 06/05/18 06/06/18 06/07/18 06:59 06:59 06:59 Intake Total 1180 610 Output Total 1000 1100 Balance 180 -490 Result Diagrams: 06/04/18 06:25 06/07/18 04:43 <Sofia Carrizales - Last Filed: 06/07/18 09:16> - Objective Vital Signs & Weight: Vital Signs (12 hours) Temp Pulse Resp BP Pulse Ox 06/07/18 11:40 97.9 F 69 16 91/55 L 97 06/07/18 07:01 97.4 F L 50 L 17 95/67 100 Weight Admit Weight 53.388 kg Weight 49.442 kg I&O: 06/06/18 06/07/18 06/08/18 06:59 06:59 06:59 Intake Total 610 300 Output Total 1100 Balance -490 300 Result Diagrams: 06/04/18 06:25 06/07/18 04:43 <Andrew Slaughter - Last Filed: 06/07/18 17:00> Phys Exam - Physical Examination Constitutional: NAD anorexic appearing. HEENT: PERRLA, moist MMs Neck: no nodes, supple Respiratory: no wheezing, clear to auscultation bilateral Cardiovascular: RRR, no significant murmur Gastrointestinal: non-tender, no distention, positive bowel sounds Musculoskeletal: no edema, pulses present Neurological: non-focal, moves all 4 limbs Psychiatric: normal affect, A&O x 3 Skin: normal turgor, cap refill <2 seconds <Sofia Carrizales - Last Filed: 06/07/18 09:16> Dx/Plan (1) Anorexia nervosa with significantly low body weight Code(s): F50.00 - ANOREXIA NERVOSA, UNSPECIFIED Status: Acute (2) Major depressive disorder Code(s): F32.9 - MAJOR DEPRESSIVE DISORDER, SINGLE EPISODE, UNSPECIFIED Status : Chronic Qualifiers: Active/Remission status: currently active Major depression episode severity : severe Psychotic features: without psychotic features (3) OCD (obsessive compulsive disorder) Code(s): F42.9 - OBSESSIVE-COMPULSIVE DISORDER, UNSPECIFIED Status: Chronic Qualifiers: Obsessive-compulsive disorder type: mixed obsessional thoughts and acts Qualified Code(s): F42.2 - Mixed obsessional thoughts and acts (4) Sinus bradycardia Code(s): R00.1 - BRADYCARDIA, UNSPECIFIED Status: Acute - Plan Plan: 27 yo F with anorexia presents with bradycardia Bradycardia, improving - HR improved to 50s and 60s overnight - Cardiology consulted & cleared for D/C stating that her HR will improve once anorexia is treated. - Echo revealed a 50-55% EF. - Will need close f/u with warp doffer in [place] if pt participates in their inpatient rehab located there. - Will continue to monitor electrolytes closely w/ QD BMPs, Mg, phos. WNLs other than slightly elevated Mg Anorexia nervosa, severe, BMI of 15.9 in clinic - Current BMI 15.9. - Pt is attempted exercising down halls, now has a sitter and is on bed rest with bathroom privileges (accompanied). Suspect she flushed or vomited up her breakfast. - Continue with daily standing wts facing away from scale and will require strict bedrest with bathroom privileges but with a nurse or other staff member escorting her. - Must have 3 meal trays per day and likely needs supervision with eating. - Needs frequent observation checks to monitor for calorie burning activities. - Nutrition consulted. Appreciate recs. - Will continue to monitor electrolytes closely to avoid refeeding syndrome. No signs of refeeding syndrome at this time. - Parents and patient have chosen [facility] for treatment. CM consulted & explained to pt and mother that pt cannot be directly transferred to [facility]. She will need to be discharged and check herself into their inpatient rehabilitation. Mom and patient expressed understanding. - Plan to keep patient in hospital until placement is possible, then she can be discharged and have her parents drive her straight to the recovery center and check her in. -Dr. Amelia Slaughter is involved in case, and is contact with head physician at [facility] and they are trying to fast track her for admission there tomorrow MDD/OCD - Will continue Prozac 40 mg. - Hydroxyzine PRN. <Sofia Carrizales - Last Filed: 06/07/18 09:16> (1) Anorexia nervosa with significantly low body weight Code(s): F50.00 - ANOREXIA NERVOSA, UNSPECIFIED Status: Acute (2) Sinus bradycardia Code(s): R00.1 - BRADYCARDIA, UNSPECIFIED Status: Acute (3) Major depressive disorder Code(s): F32.9 - MAJOR DEPRESSIVE DISORDER, SINGLE EPISODE, UNSPECIFIED Status : Chronic Qualifiers: Active/Remission status: currently active Major depression episode severity : severe Psychotic features: without psychotic features (4) OCD (obsessive compulsive disorder) Code(s): F42.9 - OBSESSIVE-COMPULSIVE DISORDER, UNSPECIFIED Status: Chronic Qualifiers: Obsessive-compulsive disorder type: mixed obsessional thoughts and acts Qualified Code(s): F42.2 - Mixed obsessional thoughts and acts <Andrew Slaughter - Last Filed: 06/07/18 17:00> Attending Addendum - Attending Addendum Date/Time: 06/07/18 [id number] I personally evaluated the patient and discussed the management with Dr. Carrizales. I agree with and repeated the History, Examination, Assessment and Plan documented above with any addition or exceptions noted below. Approximately 20 minutes spent with patient with > 50% of that time spent discussing future plan of care. <Andrew Slaughter - Last Filed: 06/07/18 17:00>
[2018-06-07 11:58] VITALS: BP 91/55; TEMP 97.9
--- NOTE | 2018-06-08 01:54 | DIS ---
DATE OF ADMISSION: 06/02/2018 DATE OF DISCHARGE: 06/07/2018 ADMITTING ATTENDING: Andrew Slaughter M.D. DISCHARGE ATTENDING: Andrew Slaughter M.D. CONSULTATIONS: Cardiology. PROCEDURES: Diagnostic echocardiogram which revealed left ventricular ejection fraction estimated at 50-55%, which may be underestimated secondary to bradycardia, trace mitral regurgitation, trace tricuspid regurgitation. DISCHARGE MEDICATIONS: Fluoxetine 40 mg p.o. at bedtime, and hydroxyzine 50 mg p.o. q.8 hours p.r.n. insomnia and anxiety. PRIMARY DIAGNOSES: 1. Bradycardia. 2. Anorexia nervosa, severe. 3. Obsessive compulsive disorder versus obsessive compulsive personality disorder, rule out. 4. History of major depressive disorder HISTORY OF PRESENT ILLNESS AND HOSPITAL COURSE: A 17-year-old female with past medical history of major depressive disorder, who presents as a direct admission from clinic. She has been seen in our clinic several times and was being seen in [facility] where it was noted she was bradycardic to 34 with normal sinus rhythm and subsequently admitted to our service. She was placed on telemetry and over the next couple days, her heart rate improved to above 50. She had no evidence of refeeding syndrome or other complications and Cardiology cleared her. During her time here, she was weighed serially and her weight ranged 54 on admission down to 53.16 with what it felt to be one spurious measurement related to change of scale. She attempted to walk laps during her stay but was always reminded not engage in purging activities or behaviors and none were noted while she was here. We contacted [facility] in [place] that was going to take her, attending' s name is Dr. Koehler and she was discharged on 06/07/2018 with plans to be admitted to that facility on 06/08. DISPOSITION: Stable. DISCHARGE INSTRUCTIONS: 1. Location: To residential treatment facility for eating disorders. 2. Diet: Supervised feeds, plan for 500 calories a meal, 3 meals a day, with boost in between. 3. Activity: No exercise. 4. Follow up with facility in [place] tomorrow. [facility]
== END 2018-06-07 14:25 | DRG 883 ==
LOC: IMCU/EMU 12:33 → 2NO 13:37 → T4-A 06-06 17:17
PROVIDERS: ADMIT Emergency Medicine; ATTEND Emergency Medicine
DX: F50.00 Anorexia nervosa, unspecified (principal); Z68.1 Body mass index [BMI] 19.9 or less, adult; R00.1 Bradycardia, unspecified; I08.1 Rheumatic disorders of both mitral and tricuspid valves; F32.9 Major depressive disorder, single episode, unspecified; F42.9 Obsessive-compulsive disorder, unspecified; F41.9 Anxiety disorder, unspecified
CPT/HCPCS: 36415; 80048; 80053; 81025; 82150; 82306; 83690; 83735; 84100; 84425; 84439; 84443; 84597; 85025; 85027; 93306; A4216; G8978-GP-CH; G8979-GP-CH; G8980-GP-CH; G8987-GO-CH; G8988-GO-CH; G8989-GO-CH; J3411; J7050